=== PATIENT | male | born 1990 | race Caucasian/White ===

== ENCOUNTER 2016-11-26 08:52 | Emergency (ER) | payer MEDICAID, OTHER ==
[~2016-11-26] VITALS: Ht 167.6 cm; Wt 66.0 kg
[2016-11-26 08:54] VITALS: Ht 167.6 cm; Wt 66.0 kg
[2016-11-26] MEDS ORDERED: KETOROLAC 30 MG INJ IM STA (09:20)
--- NOTE | 2016-11-26 09:27 | ERD ---
ER Documentation Chief Complaint Date/Time DATE: 11/26/16 TIME: 09:23 Chief Complaint left knee pain s/p trip and fall today HPI This patient is a 26-year-old male with no significant medical history presenting to the emergency department with complaints of left knee pain and swelling which occurred yesterday after injury. The patient states he tripped accidentally and fell directly onto his left knee. Pain is exacerbated with walking. Pain is alleviated with rest. The patient denies head injury or other injuries. There is no loss of consciousness. He denies EtOH use. He denies smoking and drug use. No other symptoms to report currently. ROS All systems reviewed and are negative except as per history of present illness. Medications Home Meds Active Scripts Naproxen* (Naprosyn*) 500 Mg Tablet, 500 MG PO BID Y for PAIN AND/OR INFLAMMATION, #30 TAB Prov:JOLANTA ZHAO PA-C 11/26/16 Allergies Allergies: Coded Allergies: No Known Allergy (Unverified , 11/26/16) PMhx/Soc Medical and Surgical Hx: pt denies Medical Hx, pt denies Surgical Hx History of Surgery: No Anesthesia Reaction: No Hx Neurological Disorder: No Hx Respiratory Disorders: No Hx Cardiac Disorders: No Hx Psychiatric Problems: No Hx Alcohol Use: No Hx Substance Use: No Hx Tobacco Use: No Smoking Status: Never smoker Physical Exam Vitals Vital Signs Date Time Temp Pulse Resp B/P Pulse Ox O2 Delivery O2 Flow Rate FiO2 11/26/16 08:54 98.0 60 18 116/65 99 Physical Exam Const: Nontoxic, well-appearing male in no acute distress. Head: Atraumatic Eyes: Normal Conjunctiva ENT: Normal External Ears, Nose and Mouth. Neck: Full range of motion..~ No meningismus. Resp: No signs of respiratory distress. No retractions. Skin: No petechiae or rashes Back: No midline or flank tenderness Ext: There is significant soft tissue swelling with ecchymosis noted over the left knee joint. There appears to be mild effusion present. There is tenderness palpation of the MCL. The patient has limited range of motion secondary to pain. Neur: Awake and alert Psych: Normal Mood and Affect Results 24 hrs Current Medications Medications (Trade) Dose Ordered Sig/Karen Route PRN Reason Start Time Stop Time Status Last Admin Dose Admin Ketorolac Tromethamine (Toradol) 30 mg ONCE STAT IM 11/26/16 09:20 11/26/16 09:22 DC 11/26/16 09:34 [place] [id number] Radiology Main Line: [phone] DIAGNOSTIC IMAGING REPORT Patient: CAROLYN BACK : 1990 Age: 26 Sex: M MR #: [id number] DOS: 11/26/16 0000 Ordering MD: JOLANTA ZHAO PA-C Location: [facility] Room/Bed: PROCEDURE: Left knee x-ray CLINICAL INDICATION: Knee pain TECHNIQUE: AP, lateral and tunnel views of the left knee were obtained. COMPARISON: None FINDINGS: There is normal mineralization. No acute fracture or dislocation is seen. There are no significant degenerative changes. There is a small joint effusion. There is soft tissue swelling in the suprapatellar region. RPTAT: AA IMPRESSION: Small joint effusion and soft tissue swelling in the suprapatellar region. .Iván Landaverde MD, MD Date Time Electronically viewed and signed by .Iván Landaverde MD, MD on 11/26/2016 10: 04 .S/ CC: JOLANTA ZHAO PA-C Procedures/MDM 26-year-old male presents to the emergency department with complaints of left knee pain. Physical examination shows soft tissue swelling, ecchymosis, and limited range of motion secondary to pain. X-ray shows Small joint effusion and soft tissue swelling in the suprapatellar region.. The patient was given IM Toradol in the department and he was feeling improved on reevaluation. Patient was given a knee brace and crutches. He was advised to have close follow-up with orthopedics and his primary care physician. He was advised that he may need further advanced imaging which may be pursued as an outpatient. Questions and concerns were addressed. I have low suspicion for any life- threatening illness currently. Departure Diagnosis: Primary Impression: Knee injury Encounter type: initial encounter Laterality: left Qualified Code: S89.92XA - Knee injury, left, initial encounter Condition: Fair Patient Instructions: Knee Sprain [facility] Additional Instructions: No mas mejor en 2-3 hart, regresar. Mas peor en 24 horas, regresear rapidamente. Ir a doctor primario in 5-7 hart. Usar instrucciones cuando siobhan medicamento. JOLANTA ZHAO PA-C Nov 26, 2016 09:27
--- NOTE | 2016-11-26 10:05 | RADRPT ---
PROCEDURE: Left knee x-ray CLINICAL INDICATION: Knee pain TECHNIQUE: AP, lateral and tunnel views of the left knee were obtained. COMPARISON: None FINDINGS: There is normal mineralization. No acute fracture or dislocation is seen. There are no significant degenerative changes. There is a small joint effusion. There is soft tissue swelling in the suprapatellar region. RPTAT: AA IMPRESSION: Small joint effusion and soft tissue swelling in the suprapatellar region. .Iván Landaverde MD, MD Date Time Electronically viewed and signed by .Iván Landaverde MD, on 11/26/2016 10:04 .S/
[2016-11-26] MEDS ORDERED: NAPR-260 PO (10:11)
== END 2016-11-26 10:57 | disposition home or self-care (01) ==
LOC: FTE 08:52
DX: S89.92XA Unspecified injury of left lower leg, initial encounter (principal); W01.0XXA Fall on same level from slipping, tripping and stumbling without subsequent striking against object, initial encounter; Y92.9 Unspecified place or not applicable
CPT/HCPCS: 73562; 96372; J1885; Z7502

== ENCOUNTER 2016-12-03 09:38 | Emergency (ER) | payer MEDICAID ==
[~2016-12-03] VITALS: Ht 162.6 cm; Wt 67.5 kg
[~2016-12-03 09:38] MED LIST: NAPR-260 PO
[2016-12-03 09:42] VITALS: Ht 162.6 cm; Wt 67.5 kg
--- NOTE | 2016-12-03 11:01 | ERD ---
ER Documentation Chief Complaint Date/Time DATE: 12/03/16 TIME: 10:59 Chief Complaint Pt with L knee pain and swelling X 1 week. Here 1 week ago for same. HPI 26-year-old male comes in for recheck of left knee pain after falling a week ago. Patient states that he fell onto his left knee. He was seen and evaluated had an x-ray that showed an effusion, comes in with the Maurilio bandage and crutches. He states that his pain is the same, returns because it is has not improved. He reports achy pain with bruising, localized to the left medial knee, worse with weightbearing and better at rest. He has been taking anti- inflammatories for his pain. He has not had any fevers or chills. ROS All systems reviewed and are negative except as per history of present illness. Medications Home Meds Active Scripts Ibuprofen* (Motrin*) 600 Mg Tab, 600 MG PO Q6, #30 TAB Prov:JOSE R DONOVAN PA-C 12/03/16 Naproxen* (Naprosyn*) 500 Mg Tablet, 500 MG PO BID Y for PAIN AND/OR INFLAMMATION, #30 TAB Prov:JOLANTA ZHAO PA-C 11/26/16 Allergies Allergies: Coded Allergies: No Known Allergy (Unverified , 11/26/16) PMhx/Soc History of Surgery: No Anesthesia Reaction: No Hx Neurological Disorder: No Hx Respiratory Disorders: No Hx Cardiac Disorders: No Hx Psychiatric Problems: No Hx Alcohol Use: No Hx Substance Use: No Hx Tobacco Use: No Physical Exam Vitals Vital Signs Date Time Temp Pulse Resp B/P Pulse Ox O2 Delivery O2 Flow Rate FiO2 12/03/16 09:42 98.1 67 18 131/66 97 Physical Exam General: Well-developed, well-nourished. The patient appears in no acute distress. HEENT: Head is normocephalic, atraumatic. No scleral icterus. Neck: Supple. Nontender. Lungs: Clear to auscultation. Normal air movement. Heart: Regular rate and rhythm. S1 and S2 are normal. No murmurs, gallops, or rubs. Abdomen: Nondistended. Extremities: Ecchymosis at the left medial knee with hematoma, no fluctuance or warmth. He is able to flex his knee, and able to straight leg raise. There is no calf tenderness or calf swelling. No warmth or erythema. Neurologic: Alert and oriented 3. No focal deficits. Normal speech and gait. Skin: Normal turgor. No rash or lesions. Results 24 hrs Patient: CAROLYN BACK : 1990 Age: 26 Sex: M MR #: [id number] DOS: 12/03/16 1005 Ordering MD: JOSE R DONOVAN PA-C Location: [facility] Room/Bed: PROCEDURE: CR Left Knee CLINICAL INDICATION: Fall, knee pain TECHNIQUE: An AP, a tunnel view, a lateral view, and a patellar view were submitted. COMPARISON: None FINDINGS: Osseous Structures: The osseous elements appear well mineralized and intact. Joint Spaces: The joint spaces are well maintained. No joint effusion is identified. Soft Tissues: There is prepatellar and medial soft tissue swelling. IMPRESSION: 1. Prepatellar and medial soft tissue swelling. 2. Otherwise, unremarkable left knee series. Physician Nino Date Time Electronically viewed and signed by Physician Nino on 12/03/2016 11:33 RH/ CC: JOSE R DONOVAN PA-C Procedures/[facility] ER course: Patient had x-rays obtained, his left knee was placed in a knee immobilizer. Splint Assessment: Neurovascularly intact post splint placement with good fit. MDM: 26-year-old male presents with left knee pain after falling onto directly a week ago and is here for a recheck. His examination shows an effusion. X- rays were retaken to rule out patella fracture. No signs of dislocation, septic joint, ostial myelitis or arthritis, abscess. Repeat x-rays obtained with sunrise view, no patella fracture. Effusion is seen and hematoma. He will be placed in the immobilizer, asked to continue crutches and follow-up with orthopedics. Departure Diagnosis: Primary Impression: Knee injury Condition: Good JOSE R DONOVAN PA-C Dec 03, 2016 11:01
--- NOTE | 2016-12-03 11:33 | RADRPT ---
PROCEDURE: CR Left Knee CLINICAL INDICATION: Fall, knee pain TECHNIQUE: An AP, a tunnel view, a lateral view, and a patellar view were submitted. COMPARISON: None FINDINGS: Osseous Structures: The osseous elements appear well mineralized and intact. Joint Spaces: The joint spaces are well maintained. No joint effusion is identified. Soft Tissues: There is prepatellar and medial soft tissue swelling. IMPRESSION: 1. Prepatellar and medial soft tissue swelling. 2. Otherwise, unremarkable left knee series. Physician Nino Date Time Electronically viewed and signed by Tanya Oreilly Physician on 12/03/2016 11:33 /
[2016-12-03] MEDS ORDERED: IBUP-1542 PO (11:45)
== END 2016-12-03 12:06 | disposition home or self-care (01) ==
LOC: FTE 09:38
DX: S89.92XA Unspecified injury of left lower leg, initial encounter (principal); W18.39XA Other fall on same level, initial encounter; Y92.9 Unspecified place or not applicable
CPT/HCPCS: 29505; 73564; Z7502